=== PATIENT | female | born 1985 | race Caucasian/White ===

== ENCOUNTER 2017-07-02 15:36 | Emergency (ER) | payer SELFPAY ==
[2017-07-02 15:36] VITALS: BP 151/93; PULSE 96; RESP 14; TEMP 37.1; O2SAT 100; BMI 40.8
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
[2017-07-02] MEDS: Diphth,Pertuss(Acell),Tet Vac 0.5 ML Vial IM (15:48)
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
[2017-07-02 17:29] VITALS: RESP 15
== END 2017-07-02 17:29 | disposition home or self-care (01) ==
PROVIDERS: Emergency Provider Emergency Medicine; Family Provider Family Medicine; PCP Family Medicine
DX: S00.83XA Contusion of other part of head, initial encounter (principal); S00.81XA Abrasion of other part of head, initial encounter; S80.02XA Contusion of left knee, initial encounter; S80.01XA Contusion of right knee, initial encounter; S90.02XA Contusion of left ankle, initial encounter; V43.62XA Car passenger injured in collision with other type car in traffic accident, initial encounter; Y93.89 Activity, other specified; Y92.410 Unspecified street and highway as the place of occurrence of the external cause; E03.9 Hypothyroidism, unspecified; E66.9 Obesity, unspecified; Z68.41 Body mass index [BMI] 40.0-44.9, adult
CPT/HCPCS: 70450; 72100; 72125; 73564; 73610; 90471; 90715; 99284

== ENCOUNTER 2019-02-28 22:07 | Emergency (ER) | payer MEDICAID, SELFPAY ==
[2019-02-28 22:08] VITALS: BP 146/84; PULSE 83; RESP 16; TEMP 36.7; O2SAT 100; BMI 39.2
--- NOTE | 2019-02-28 22:40 | EKG12_ITS ---
Test Reason : Blood Pressure : / mmHG Vent. Rate : 085 BPM Atrial Rate : 085 BPM P-R Int : 126 ms QRS Dur : 082 ms QT Int : 382 ms P-R-T Axes : 033 011 022 degrees QTc Int : 454 ms Normal sinus rhythm Normal ECG Confirmed by SHARAD PARRISH, CLAUDY ([id number]), online editor JHOANA WADE ([id number]) on 03/02/2019 12:39:30 PM Referred By: EDUIN Confirmed By:RADHA OROURKE MD
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
--- NOTE | 2019-02-28 22:44 | ED.RN ---
NO OLD EKGS IN MUSE
[2019-02-28 23:38] LABS: Bacteria 0 SEEN /hpf (None Seen); Mucous, Urine 0 SEEN /hpf (<or=2+); Red Blood Cells-Urine 0 SEEN /hpf (0-5)
[2019-02-28 23:40] LABS: Color, Urine Yellow (Yellow); Glucose, Dipstick Normal (Normal); Ketone-Dipstick 50 mg/dl (Negative); Leukocyte Esterase-Dipstick 500 /ul (Negative); Nitrite-Dipstick Negative (Negative); Occult Blood-Urine 50 /ul (Negative); Protein-Dipstick 30 mg/dl (Negative); Urine Bilirubin Dipstick Negative (Negative); Urine Clarity Cloudy (Clear); Urine Urobilinogen Normal (Normal)
[2019-02-28 23:43] LABS: Internal QC Validated? YES +Cl - CLEAR BKGD; Pregnancy, Urine Negative Negative
[2019-02-28 23:49] LABS: Squamous Epithelial Cells - UA 25-50 SEEN /hpf (5-10); White Blood Cells 10-25 SEEN /hpf (0-5)
[2019-03-01] MEDS: Cephalexin 250 MG Capsule 500 MG PO (00:02)
== END 2019-03-01 00:08 | disposition home or self-care (01) ==
PROVIDERS: Emergency Provider Emergency Medicine; Family Provider Nurse Practitioner Family; PCP Nurse Practitioner Family
DX: R55 Syncope and collapse (principal); N39.0 Urinary tract infection, site not specified; E03.9 Hypothyroidism, unspecified; F32.9 Major depressive disorder, single episode, unspecified
CPT/HCPCS: 81001; 81025; 93005; 99283

== ENCOUNTER → 2019-08-20 20:00 | Outpatient (CLI) | payer MEDICAID, SELFPAY | DX: G47.9 Sleep disorder, unspecified (principal) | CPT/HCPCS: 95810 ==

== ENCOUNTER → 2019-10-03 | Outpatient (CLI) | payer MEDICAID, SELFPAY | END | disposition home or self-care (01) | LOC: SL 21:44 | PROVIDERS: Visit Provider Nurse Practitioner Family | DX: G47.33 Obstructive sleep apnea (adult) (pediatric) (principal) | CPT/HCPCS: 95811 ==

== ENCOUNTER 2019-12-20 08:11 | Emergency (ER) | payer MEDICAID, SELFPAY ==
[2019-12-20 08:12] VITALS: BP 154/90; PULSE 85; RESP 17; TEMP 36.7; O2SAT 100; BMI 41.1
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
[2019-12-20] MEDS: Lidocaine/Epi/Tetracaine 50 ML 1 APPLIC TOPICAL (08:44)
== END 2019-12-20 09:12 | disposition home or self-care (01) ==
LOC: ED 08:45
PROVIDERS: Emergency Provider Emergency Medicine
DX: S01.311A Laceration without foreign body of right ear, initial encounter (principal); S01.81XA Laceration without foreign body of other part of head, initial encounter; E03.9 Hypothyroidism, unspecified; Z87.891 Personal history of nicotine dependence; W25.XXXA Contact with sharp glass, initial encounter
CPT/HCPCS: 12011; 99283